=== PATIENT | male | born 2000 | race Caucasian/White ===

== ENCOUNTER → 2023-04-02 | Outpatient (CLI) | payer BC ==
[~2023-04-02] MED LIST: AMOX1TAB61 PO; METR-67 PO
[2023-04-02 10:06] LABS: BASOPHIL % 0.2 % (0.0-0.2); HEMATOCRIT(ML) 46.7 % (37.0-53.0); HEMOGLOBIN 16.4 g/dL (13.9-16.3); IG % 0.2 % (0.00-0.50); LYMPHOCYTES # 1.26 10^3/uL1 (1.0-4.8); MEAN CORP HGB 28.5 pg (26-34); MEAN CORP HGB CONCENTRATION 35.1 g/dL (33-36.5); MEAN CORP VOLUME 81.1 fL (78-100); MONOCYTES # 1.6 10^3/uL (0.3-0.8); MONOCYTES % 8.7 % (5.0-12.0); NEUTROPHIL # 15.1 10^3/uL (1.8-7.7); NEUTROPHILS % 83.9 % (41.0-85.0); RED BLOOD CELL 5.76 10^6/uL (4.50-5.90); RED CELL DISTRIBUTION WIDTH 12.3 % (11.5-14.5)
[2023-04-02 10:32] LABS: ALBUMIN(ML) 4.5 g/dL (3.4-5.0); ALBUMIN/GLOBULIN RATIO 1.285; ANION GAP 16.7; CARBON DIOXIDE 24.2 mmol/L (20.0-32); CREATININE SERUM 1.13 mg/dL (0.59-1.40); EST GFR, NON-AA 81.1 (>/=60); POTASSIUM 3.9 mmol/L (3.6-5.2)
== END | disposition home or self-care (01) ==
LOC: LAB 09:49
PROVIDERS: ATTEND Nurse Practitioner Family
DX: R16.1 Splenomegaly, not elsewhere classified (principal)
CPT/HCPCS: 36415; 74019; 76700; 80053; 82150; 83690; 85025; 93976